=== PATIENT | male | born 1980 | race American Indian/Alaskan Native ===

== ENCOUNTER 2018-03-10 17:21 | Emergency (ER) | payer BC, SELFPAY ==
--- NOTE | 2018-03-10 17:30 | ED.ABDPAIN ---
HPI - Abdominal Pain <TORRIE Jim - Last Filed: 03/10/18 22:08> General Chief Complaint: Abdominal Pain Stated Complaint: Abdominal pain, Gall bladder removed Time Seen by Provider: 03/10/18 17:29 Source: patient Mode of arrival: ambulatory Limitations: no limitations History of Present Illness HPI narrative: 37-year-old male with history of hypertension and type 2 diabetes that is a nonsmoker here for complaint of right upper quadrant pain. He reports that he recently had a cholecystectomy via laparoscopy 3 days ago at [facility]. He reports that he was doing well until today when he started having increased pain to the area. He also has some nausea and vomiting. He denies any trauma to the area. No fevers no chills. He states his last bowel movement was earlier today and was loose. He was tolerating fluid up until today. He denies any stressors relievers of his pain. No other concerns or complaints. Related Data Previous Rx's Medication Instructions Recorded hydrocodone-acetaminophen [[place]] 1 tab PO Q4-6H PRN #15 tab 03/10/18 ondansetron 4 mg PO Q6-8H PRN #12 tab 03/10/18 Allergies Allergy/AdvReac Type Severity Reaction Status Date / Time No Known Drug Allergies Allergy Verified 03/10/18 17:38 Review of Systems <TORRIE Jim - Last Filed: 03/10/18 22:08> Constitutional Denies chills, Denies fever(s), Denies lethargy and Denies weakness Eyes Denies change in vision, Denies eye discharge, Denies irritation and Denies loss of vision ENT Ears, Nose, Mouth, and Throat: Denies change in voice, Denies neck pain and Denies sore throat Cardiovascular Denies chest pain, Denies irregular heart rhythm, Denies lightheadedness, Denies palpitations, Denies dyspnea, Denies dyspnea on exertion and Denies orthopnea Respiratory Denies cough, Denies dyspnea, Denies dyspnea on exertion and Denies wheezing Gastrointestinal Gastrointestinal: Reports abdominal pain and Reports vomiting Genitourinary Denies hematuria, Denies flank pain, Denies urinary incontinence and Denies urinary urgency Musculoskeletal Denies neck pain Integumentary/Breasts Denies pruritus, Denies erythema, Denies rash and Denies wounds Neurologic Denies confusion, Denies loss of vision and Denies weakness Psychiatric Denies anxiety, Denies confusion, Denies depression, Denies homicidal ideation and Denies suicidal ideation Endocrine Denies palpitations Hematologic/Lymphatic Denies easy bruising Allergic/Immunologic Denies wheezing Exam <TORRIE Jim - Last Filed: 03/10/18 22:08> Initial Vital Signs Initial Vital Signs: Vital Signs Temperature 98.1 F 03/10/18 17:34 Pulse Rate 122 H 03/10/18 17:34 Respiratory Rate 24 03/10/18 17:34 Blood Pressure 159/94 H 03/10/18 17:34 Pulse Oximetry 99 03/10/18 17:34 Const General: cooperative and well developed Nutritional Appearance: well nourished Orientation: alert, awake, oriented x3 and not confused HENMT Mouth: oral mucosae normal and moist mucous membranes Eyes Conjunctivae: conjunctivae normal Sclera: sclerae normal Pupils: PERRL EOM: EOM intact bilaterally Resp Effort & Inspection: normal respiratory effort, able to speak in complete sentences, no respiratory distress and no use of accessory muscles Auscultation: clear to auscultation bilaterally, no rales, no rhonchi and no wheezes Cardio Rate: regular rate Rhythm: regular rhythm Heart Sounds: no click, no gallops, no murmurs and no rubs GI Inspection: non-distended Palpation: soft, no hepatosplenomegaly, No guarding, No pulsatile mass and tender (Right upper quadrant tenderness) Auscultation: normal bowel sounds Skin General: no rashes or lesions noted, No jaundice and No petechiae Neuro General: alert, oriented x3, gait normal and no focal motor deficits Speech: speech normal <Jonh Cain DO - Last Filed: 03/11/18 05:52> Initial Vital Signs Initial Vital Signs: Vital Signs Temperature 98.1 F 03/10/18 17:34 Pulse Rate 122 H 03/10/18 17:34 Respiratory Rate 24 03/10/18 17:34 Blood Pressure 159/94 H 03/10/18 17:34 Pulse Oximetry 99 03/10/18 17:34 Course <TORRIE Jim - Last Filed: 03/10/18 22:08> Orders Ordered: Discontinued Medications Hydrocodone Bitart/Acetaminophen (Vicodin Prepack) 1 bottle MISC SEEINSTR ONE Stop: 11/24/18 21:37 Last Admin: 03/10/18 21:52 Dose: 1 bottle Hydromorphone HCl (Dilaudid) 1 mg IV NOW ONE Stop: 03/10/18 18:05 Last Admin: 03/10/18 18:16 Dose: 1 mg Hydromorphone HCl (Dilaudid) 1 mg IV NOW ONE Stop: 03/10/18 20:16 Last Admin: 03/10/18 20:22 Dose: 1 mg Hydromorphone HCl (Dilaudid) 0.5 mg IV NOW ONE Stop: 03/10/18 21:46 Last Admin: 03/10/18 21:52 Dose: 0.5 mg Sodium Chloride (Normal Saline 0.9%) 1,000 mls @ 1,000 mls/hr IV BOLUS ONE Stop: 03/10/18 18:39 Last Infusion: 03/10/18 19:43 Dose: 0 mls/hr Admin: 03/10/18 18:16 Dose: 1,000 mls/hr Sodium Chloride (Normal Saline 0.9%) 1,000 mls @ 1,000 mls/hr IV BOLUS ONE Stop: 03/10/18 19:03 Last Admin: 03/10/18 20:21 Dose: Not Given Ondansetron HCl (Zofran) 4 mg IV NOW ONE Stop: 03/10/18 18:05 Last Admin: 03/10/18 18:16 Dose: 4 mg Ondansetron HCl (Zofran Odt Prepack) 1 bottle [facility] ONE Stop: 03/10/18 21:37 Last Admin: 03/10/18 21:52 Dose: 1 bottle Vital Signs - 8 hr 03/10/18 17:34 03/10/18 18:55 03/10/18 20:27 Temperature 98.1 F Pulse Rate 122 H 93 H 94 H Respiratory Rate 24 18 16 Blood Pressure 159/94 H Blood Pressure [Left Arm] 153/94 H Blood Pressure [Right Arm] 144/88 H Pulse Oximetry 99 100 100 03/10/18 21:43 Temperature Pulse Rate 85 Respiratory Rate 16 Blood Pressure Blood Pressure [Left Arm] 139/79 Blood Pressure [Right Arm] 139/79 Pulse Oximetry 100 <Jonh Cain DO - Last Filed: 03/11/18 05:52> Orders Ordered: Discontinued Medications Hydrocodone Bitart/Acetaminophen (Vicodin Prepack) 1 bottle MISC SEEINSTR ONE Stop: 03/10/18 21:37 Last Admin: 03/10/18 21:52 Dose: 1 bottle Hydromorphone HCl (Dilaudid) 1 mg IV NOW ONE Stop: 03/10/18 18:05 Last Admin: 03/10/18 18:16 Dose: 1 mg Hydromorphone HCl (Dilaudid) 1 mg IV NOW ONE Stop: 03/10/18 20:16 Last Admin: 03/10/18 20:22 Dose: 1 mg Hydromorphone HCl (Dilaudid) 0.5 mg IV NOW ONE Stop: 03/10/18 21:46 Last Admin: 03/10/18 21:52 Dose: 0.5 mg Sodium Chloride (Normal Saline 0.9%) 1,000 mls @ 1,000 mls/hr IV BOLUS ONE Stop: 03/10/18 18:39 Last Infusion: 03/10/18 19:43 Dose: 0 mls/hr Admin: 03/10/18 18:16 Dose: 1,000 mls/hr Sodium Chloride (Normal Saline 0.9%) 1,000 mls @ 1,000 mls/hr IV BOLUS ONE Stop: 03/10/18 19:03 Last Admin: 03/10/18 20:21 Dose: Not Given Ondansetron HCl (Zofran) 4 mg IV NOW ONE Stop: 03/10/18 18:05 Last Admin: 03/10/18 18:16 Dose: 4 mg Ondansetron HCl (Zofran Odt Prepack) 1 bottle MISC SEEINSTR ONE Stop: 03/10/18 21:37 Last Admin: 03/10/18 21:52 Dose: 1 bottle Vital Signs - 8 hr 03/10/18 17:34 03/10/18 18:55 03/10/18 20:27 Temperature 98.1 F Pulse Rate 122 H 93 H 94 H Respiratory Rate 24 18 16 Blood Pressure 159/94 H Blood Pressure [Left Arm] 153/94 H Blood Pressure [Right Arm] 144/88 H Pulse Oximetry 99 100 100 03/10/18 21:43 Temperature Pulse Rate 85 Respiratory Rate 16 Blood Pressure Blood Pressure [Left Arm] 139/79 Blood Pressure [Right Arm] 139/79 Pulse Oximetry 100 MDM - Abdominal Pain <Nino QuintanaTORRIE - Last Filed: 03/10/18 22:08> Lab Data Result diagrams: 03/10/18 17:35 03/10/18 17:35 Lab Results 03/10/18 03/10/18 03/10/18 Range/Units 17:35 17:35 17:50 WBC 12.0 H (4.5-11.0) X10^3/uL RBC 5.70 (4.5-5.9) X10^6/uL Hgb 16.4 (13.5-17.5) g/dL Hct 48.1 (41-53) % MCV 84.3 (80-100) fL MCH 28.8 (26-34) PG MCHC 34.2 (30-36) % RDW 13.7 (11.6-14.8) % Plt Count 422 H (150-400) X10^3/uL Neut % (Auto) 75.8 H (50-75) % Lymph % (Auto) 15.3 L (25-40) % [place] % (Auto) 7.3 (3-14) % Eos % (Auto) 1.1 L (2-4) % Baso % (Auto) 0.5 (0-2) % Neut # (Auto) 9100 H (1619-7791) /uL Sodium 143 (137-145) mmol/L Potassium 4.3 (3.4-5.1) mmol/L Chloride 99 (98-107) mmol/L Carbon Dioxide 29 (22-32) mmol/L BUN 8 L (9-20) mg/dL Creatinine 0.70 (0.66-1.25) mg/dL Estimated GFR > 60.0 (>60) mL/min BUN/Creatinine Ratio 11.4 (6-22) Glucose 152 H (70-100) mg/dL Lactate 1.5 (0.7-2.1) mmol/L Calcium 9.7 (8.4-10.2) mg/dL Total Bilirubin 0.7 (0.2-1.3) mg/dL AST 56 (17-59) IU/L ALT 53 (21-72) IU/L Alkaline Phosphatase 110 (38-126) U/L Total Protein 8.6 H (6.3-8.2) g/dL Albumin 4.7 (3.5-5.0) g/dL Globulin 3.9 (1.7-4.1) g/dL Albumin/Globulin Ratio 1.2 (1.0-2.8) Lipase 682 H (23-300) U/L Point of care testing: Urine Dip Bedside Urine Glucose 100 mg/dl Bedside Urine Bilirubin - Negative Bedside Urine Ketone - Negative Urine Specific [place] 1.015 Bedside Urine Occult Blood - Negative Bedside Urine pH 6.5 Bedside Urine Protein - Negative Bedside Urine Urobilinogen +/- 1mg Bedside Urine Nitrite - Negative Bedside Urine Leukocytes - Negative Esterase Imaging Data CT scan - abdomen: Radiologist's impression: [address] [address] [address] Scan Report Signed Patient: Timbo Saldana [facility]#: [id number] : 1980Acct:[id number] Age/Sex: 37 / MDate of Service: 03/10/18 Loc: ED Accession Number: [id number] Procedure: CT abdomen pelvis w con Ordering Provider: Nino Quintana PROCEDURE: CT ABDOMEN PELVIS W CON INDICATIONS: Pain into right upper quadrant TECHNIQUE: After the administration of oral and intravenous contrast, 5 mm thick sections acquired from the diaphragms to the symphysis. 5 mm thick coronal and sagittal reformats were performed. For radiation dose reduction, the following was used: automated exposure control, adjustment of mA and/or kV according to patient size. COMPARISON: None. FINDINGS: Image quality: Excellent. ABDOMEN: Lung bases: Lung bases are clear. Heart size is normal. Solid organs: Liver is normal in size and enhancement. Gallbladder is surgically absent, and there is a small amount of ill-defined high density fat stranding within the gallbladder fossa, compatible with postsurgical sequelae. Biliary system is non-dilated. Pancreas enhances normally. Spleen is normal in size and enhancement. No adrenal nodules. Kidneys are normal in size and enhancement, without hydronephrosis. Peritoneum and bowel: Stomach, small bowel, and colon loops are normal in caliber and wall thickness. No free fluid or air. No change in mild dilatation of the appendiceal tip. Nodes and vessels: No retroperitoneal or mesenteric adenopathy. Aorta and inferior vena cava are normal in caliber. Miscellaneous: No ventral hernias. PELVIS: Genitourinary: Bladder wall thickness is normal. Miscellaneous: No inguinal hernias or adenopathy. Bones: No suspicious bony lesions. No vertebral body compression fractures. IMPRESSION: 1. Postsurgical sequelae. 2. No change in mild dilatation of the appendiceal tip, which could indicate mucocele or mucinous neoplasm. Surgical consultation recommended. Dictated by: Nancy Verde M.D. on 03/10/2018 at 19:24 Approved by: Nancy Verde M.D. on 03/10/2018 at 19:26 [facility] Narrative Medical decision making narrative: CBC shows elevated white count of 12k. CBC also shows elevated neutrophils at 9100, CMP was obtained and was unremarkable. Lipase was elevated at 682. CT of the abdomen shows postsurgical sequelae to the area of the gallbladder. CT of the abdomen also shows some dilation to the tip of the appendix unsure of the etiology of the distention. This is stable with prior CT. Discussed case with Dr. doherty surgery on-call at [facility] who states that they will follow up with the patient on Monday. He is prescribed [place] for discomfort. He is also prescribed ondansetron to help with the nausea vomiting. Slowly advance diet as tolerated. For any worsening symptoms return to the emergency room. <Jonh Cain, DO - Last Filed: 03/11/18 05:52> Lab Data Lab Results 03/10/18 03/10/18 03/10/18 Range/Units 17:35 17:35 17:50 WBC 12.0 H (4.5-11.0) X10^3/uL RBC 5.70 (4.5-5.9) X10^6/uL Hgb 16.4 (13.5-17.5) g/dL Hct 48.1 (41-53) % MCV 84.3 (80-100) fL MCH 28.8 (26-34) PG MCHC 34.2 (30-36) % RDW 13.7 (11.6-14.8) % Plt Count 422 H (150-400) X10^3/uL Neut % (Auto) 75.8 H (50-75) % Lymph % (Auto) 15.3 L (25-40) % [place] % (Auto) 7.3 (3-14) % Eos % (Auto) 1.1 L (2-4) % Baso % (Auto) 0.5 (0-2) % Neut # (Auto) 9100 H (0542-7685) /uL Sodium 143 (137-145) mmol/L Potassium 4.3 (3.4-5.1) mmol/L Chloride 99 (98-107) mmol/L Carbon Dioxide 29 (22-32) mmol/L BUN 8 L (9-20) mg/dL Creatinine 0.70 (0.66-1.25) mg/dL Estimated GFR > 60.0 (>60) mL/min BUN/Creatinine Ratio 11.4 (6-22) Glucose 152 H (70-100) mg/dL Lactate 1.5 (0.7-2.1) mmol/L Calcium 9.7 (8.4-10.2) mg/dL Total Bilirubin 0.7 (0.2-1.3) mg/dL AST 56 (17-59) IU/L ALT 53 (21-72) IU/L Alkaline Phosphatase 110 (38-126) U/L Total Protein 8.6 H (6.3-8.2) g/dL Albumin 4.7 (3.5-5.0) g/dL Globulin 3.9 (1.7-4.1) g/dL Albumin/Globulin Ratio 1.2 (1.0-2.8) Lipase 682 H (23-300) U/L Point of care testing: Urine Dip Bedside Urine Glucose 100 mg/dl Bedside Urine Bilirubin - Negative Bedside Urine Ketone - Negative Urine Specific [place] 1.015 Bedside Urine Occult Blood - Negative Bedside Urine pH 6.5 Bedside Urine Protein - Negative Bedside Urine Urobilinogen +/- 1mg Bedside Urine Nitrite - Negative Bedside Urine Leukocytes - Negative Esterase Discharge Plan Departure Patient Disposition: Home Clinical Impression: Abdominal pain Discharge Date/Time: 03/10/18 22:07 Interventions: ED Discharge Assessment Last Done: 03/10/18 22:07 Instructions: DI for Abdominal Pain-Adult Activity Restrictions/Additional Instructions: Laboratory results today shows slightly elevated white count this may be due to postsurgical changes. Laboratory results also show elevated lipase however CT does not show any complications with your pancreas. Discussed case with surgery at [facility] will follow up with you on Monday. Call the office Monday morning to schedule follow-up appointment. You are prescribed [place] for pain use as directed. Also prescribed Zofran to help with any nausea also use as directed. For any worsening symptoms return to the emergency room. Prescriptions: New hydrocodone-acetaminophen [[place]] 5-325 mg tablet 1 tab PO Q4-6H PRN (Reason: pain) Qty: 15 RF: 0 ondansetron 4 mg tablet,disintegrating 4 mg PO Q6-8H PRN (Reason: nausea and vomiting) Qty: 12 RF: 0 Referrals: [facility] [Provider Group] <Jonh Cain DO - Last Filed: 03/11/18 05:52> [facility] ED Attending Samantha Attestation: I was immediately available in the department for consultation. Documentation has been reviewed. I agree with assessment and plan.
[2018-03-10 17:34] VITALS: BP 159/94; PULSE 122; RESP 24; TEMP 36.7; O2SAT 99; BMI 34.0
[2018-03-10 17:49] LABS: Add Manual Diff / Slide Review NO; Basophils Percent Auto 0.5 % (0-2); Eosinophils Percent Auto 1.1 % (2-4); Hematocrit 48.1 % (41-53); Hemoglobin 16.4 g/dL (13.5-17.5); Lymphocytes Percent Auto 15.3 % (25-40); Mean Corpuscular HGB Conc 34.2 % (30-36); Mean Corpuscular Hemoglobin 28.8 PG (26-34); Mean Corpuscular Volume 84.3 fL (80-100); Monocytes Percent Auto 7.3 % (3-14); Neutrophils Absolute Auto 9100 /uL (3000-5900); Neutrophils Percent Auto 75.8 % (50-75); Platelet Count 422 X10^3/uL (150-400); Red Cell Distribution Width 13.7 % (11.6-14.8)
[2018-03-10 17:55] LABS: Alanine Aminotransferase 53 IU/L (21-72); Albumin 4.7 g/dL (3.5-5.0); Albumin Globulin Ratio 1.2 (1.0-2.8); Alkaline Phosphatase 110 U/L (38-126); Aspartate Aminotransferase 56 IU/L (17-59); BUN Creatinine Ratio 11.4 (6-22); Bilirubin Total 0.7 mg/dL (0.2-1.3); Blood Urea Nitrogen 8 mg/dL (9-20); Calcium 9.7 mg/dL (8.4-10.2); Carbon Dioxide 29 mmol/L (22-32); Chloride 99 mmol/L (98-107); Estimated Glomerular Filt Rate > 60.0 mL/min (>60); Globulin 3.9 g/dL (1.7-4.1); Glucose 152 mg/dL (70-100); HEMOLYSIS 35 (0-50); Lipase 682 U/L (23-300); Potassium 4.3 mmol/L (3.4-5.1); Sodium 143 mmol/L (137-145); Total Protein 8.6 g/dL (6.3-8.2)
--- NOTE | 2018-03-10 18:04 | DI.CT.S_ITS ---
PROCEDURE: CT ABDOMEN PELVIS W CON INDICATIONS: Pain into right upper quadrant TECHNIQUE: After the administration of oral and intravenous contrast, 5 mm thick sections acquired from the diaphragms to the symphysis. 5 mm thick coronal and sagittal reformats were performed. For radiation dose reduction, the following was used: automated exposure control, adjustment of mA and/or kV according to patient size. COMPARISON: None. FINDINGS: Image quality: Excellent. ABDOMEN: Lung bases: Lung bases are clear. Heart size is normal. Solid organs: Liver is normal in size and enhancement. Gallbladder is surgically absent, and there is a small amount of ill-defined high density fat stranding within the gallbladder fossa, compatible with postsurgical sequelae. Biliary system is non-dilated. Pancreas enhances normally. Spleen is normal in size and enhancement. No adrenal nodules. Kidneys are normal in size and enhancement, without hydronephrosis. Peritoneum and bowel: Stomach, small bowel, and colon loops are normal in caliber and wall thickness. No free fluid or air. No change in mild dilatation of the appendiceal tip. Nodes and vessels: No retroperitoneal or mesenteric adenopathy. Aorta and inferior vena cava are normal in caliber. Miscellaneous: No ventral hernias. PELVIS: Genitourinary: Bladder wall thickness is normal. Miscellaneous: No inguinal hernias or adenopathy. Bones: No suspicious bony lesions. No vertebral body compression fractures. IMPRESSION: 1. Postsurgical sequelae. 2. No change in mild dilatation of the appendiceal tip, which could indicate mucocele or mucinous neoplasm. Surgical consultation recommended. Dictated by: Nancy Verde M.D. on 03/10/2018 at 19:24 Approved by: Nancy Verde M.D. on 03/10/2018 at 19:26
[2018-03-10] MEDS: ONDANSETRON 4 MG/2 ML INJ IV (18:16)
[2018-03-10] MEDS: SODIUM CHLORIDE 0.9% 1,000 ML 1000 ML IV (18:16)
[2018-03-10] MEDS: HYDROMORPHONE 1 MG INJ IV ×2 (18:16→20:22)
[2018-03-10 18:17] LABS: Lactate (Lactic Acid) 1.5 mmol/L (0.7-2.1)
[2018-03-10 18:55] VITALS: BP 153/94; PULSE 93; RESP 18; O2SAT 100
[2018-03-10 20:27] VITALS: BP 144/88; PULSE 94; RESP 16; O2SAT 100
--- NOTE | 2018-03-10 20:47 | ED_ITS ---
HPI - Abdominal Pain <TORRIE Jim - Last Filed: 03/10/18 22:08> General Chief Complaint: Abdominal Pain Stated Complaint: Abdominal pain, Gall bladder removed Time Seen by Provider: 03/10/18 17:29 Source: patient Mode of arrival: ambulatory Limitations: no limitations History of Present Illness HPI narrative: 37-year-old male with history of hypertension and type 2 diabetes that is a nonsmoker here for complaint of right upper quadrant pain. He reports that he recently had a cholecystectomy via laparoscopy 3 days ago at [facility]. He reports that he was doing well until today when he started having increased pain to the area. He also has some nausea and vomiting. He denies any trauma to the area. No fevers no chills. He states his last bowel movement was earlier today and was loose. He was tolerating fluid up until today. He denies any stressors relievers of his pain. No other concerns or complaints. Related Data Previous Rx's Medication Instructions Recorded hydrocodone-acetaminophen [Clyde] 1 tab PO Q4-6H PRN #15 tab 03/10/18 ondansetron 4 mg PO Q6-8H PRN #12 tab 03/10/18 Allergies Allergy/AdvReac Type Severity Reaction Status Date / Time No Known Drug Allergies Allergy Verified 03/10/18 17:38 Review of Systems <TORRIE Jim - Last Filed: 03/10/18 22:08> Constitutional Denies chills, Denies fever(s), Denies lethargy and Denies weakness Eyes Denies change in vision, Denies eye discharge, Denies irritation and Denies loss of vision ENT Ears, Nose, Mouth, and Throat: Denies change in voice, Denies neck pain and Denies sore throat Cardiovascular Denies chest pain, Denies irregular heart rhythm, Denies lightheadedness, Denies palpitations, Denies dyspnea, Denies dyspnea on exertion and Denies orthopnea Respiratory Denies cough, Denies dyspnea, Denies dyspnea on exertion and Denies wheezing Gastrointestinal Gastrointestinal: Reports abdominal pain and Reports vomiting Genitourinary Denies hematuria, Denies flank pain, Denies urinary incontinence and Denies urinary urgency Musculoskeletal Denies neck pain Integumentary/Breasts Denies pruritus, Denies erythema, Denies rash and Denies wounds Neurologic Denies confusion, Denies loss of vision and Denies weakness Psychiatric Denies anxiety, Denies confusion, Denies depression, Denies homicidal ideation and Denies suicidal ideation Endocrine Denies palpitations Hematologic/Lymphatic Denies easy bruising Allergic/Immunologic Denies wheezing Exam <TORRIE Jim - Last Filed: 03/10/18 22:08> Initial Vital Signs Initial Vital Signs: Vital Signs Temperature 98.1 F 03/10/18 17:34 Pulse Rate 122 H 03/10/18 17:34 Respiratory Rate 24 03/10/18 17:34 Blood Pressure 159/94 H 03/10/18 17:34 Pulse Oximetry 99 03/10/18 17:34 Const General: cooperative and well developed Nutritional Appearance: well nourished Orientation: alert, awake, oriented x3 and not confused HENMT Mouth: oral mucosae normal and moist mucous membranes Eyes Conjunctivae: conjunctivae normal Sclera: sclerae normal Pupils: PERRL EOM: EOM intact bilaterally Resp Effort & Inspection: normal respiratory effort, able to speak in complete sentences, no respiratory distress and no use of accessory muscles Auscultation: clear to auscultation bilaterally, no rales, no rhonchi and no wheezes Cardio Rate: regular rate Rhythm: regular rhythm Heart Sounds: no click, no gallops, no murmurs and no rubs GI Inspection: non-distended Palpation: soft, no hepatosplenomegaly, No guarding, No pulsatile mass and tender (Right upper quadrant tenderness) Auscultation: normal bowel sounds Skin General: no rashes or lesions noted, No jaundice and No petechiae Neuro General: alert, oriented x3, gait normal and no focal motor deficits Speech: speech normal <Jonh Cain DO - Last Filed: 03/11/18 05:52> Initial Vital Signs Initial Vital Signs: Vital Signs Temperature 98.1 F 03/10/18 17:34 Pulse Rate 122 H 03/10/18 17:34 Respiratory Rate 24 03/10/18 17:34 Blood Pressure 159/94 H 03/10/18 17:34 Pulse Oximetry 99 03/10/18 17:34 Course <TORRIE Jim - Last Filed: 03/10/18 22:08> Orders Ordered: Discontinued Medications Hydrocodone Bitart/Acetaminophen (Vicodin Prepack) 1 bottle MISC SEEINSTR ONE Stop: 11/24/18 21:37 Last Admin: 03/10/18 21:52 Dose: 1 bottle Hydromorphone HCl (Dilaudid) 1 mg IV NOW ONE Stop: 03/10/18 18:05 Last Admin: 03/10/18 18:16 Dose: 1 mg Hydromorphone HCl (Dilaudid) 1 mg IV NOW ONE Stop: 03/10/18 20:16 Last Admin: 03/10/18 20:22 Dose: 1 mg Hydromorphone HCl (Dilaudid) 0.5 mg IV NOW ONE Stop: 03/10/18 21:46 Last Admin: 03/10/18 21:52 Dose: 0.5 mg Sodium Chloride (Normal Saline 0.9%) 1,000 mls @ 1,000 mls/hr IV BOLUS ONE Stop: 03/10/18 18:39 Last Infusion: 03/10/18 19:43 Dose: 0 mls/hr Admin: 03/10/18 18:16 Dose: 1,000 mls/hr Sodium Chloride (Normal Saline 0.9%) 1,000 mls @ 1,000 mls/hr IV BOLUS ONE Stop: 03/10/18 19:03 Last Admin: 03/10/18 20:21 Dose: Not Given Ondansetron HCl (Zofran) 4 mg IV NOW ONE Stop: 03/10/18 18:05 Last Admin: 03/10/18 18:16 Dose: 4 mg Ondansetron HCl (Zofran Odt Prepack) 1 bottle [facility] SEEINSTR ONE Stop: 03/10/18 21:37 Last Admin: 03/10/18 21:52 Dose: 1 bottle Vital Signs - 8 hr 03/10/18 17:34 03/10/18 18:55 03/10/18 20:27 Temperature 98.1 F Pulse Rate 122 H 93 H 94 H Respiratory Rate 24 18 16 Blood Pressure 159/94 H Blood Pressure [Left Arm] 153/94 H Blood Pressure [Right Arm] 144/88 H Pulse Oximetry 99 100 100 03/10/18 21:43 Temperature Pulse Rate 85 Respiratory Rate 16 Blood Pressure Blood Pressure [Left Arm] 139/79 Blood Pressure [Right Arm] 139/79 Pulse Oximetry 100 <Jonh Cain DO - Last Filed: 03/11/18 05:52> Orders Ordered: Discontinued Medications Hydrocodone Bitart/Acetaminophen (Vicodin Prepack) 1 bottle MISC SEEINSTR ONE Stop: 03/10/18 21:37 Last Admin: 03/10/18 21:52 Dose: 1 bottle Hydromorphone HCl (Dilaudid) 1 mg IV NOW ONE Stop: 03/10/18 18:05 Last Admin: 03/10/18 18:16 Dose: 1 mg Hydromorphone HCl (Dilaudid) 1 mg IV NOW ONE Stop: 03/10/18 20:16 Last Admin: 03/10/18 20:22 Dose: 1 mg Hydromorphone HCl (Dilaudid) 0.5 mg IV NOW ONE Stop: 03/10/18 21:46 Last Admin: 03/10/18 21:52 Dose: 0.5 mg Sodium Chloride (Normal Saline 0.9%) 1,000 mls @ 1,000 mls/hr IV BOLUS ONE Stop: 03/10/18 18:39 Last Infusion: 03/10/18 19:43 Dose: 0 mls/hr Admin: 03/10/18 18:16 Dose: 1,000 mls/hr Sodium Chloride (Normal Saline 0.9%) 1,000 mls @ 1,000 mls/hr IV BOLUS ONE Stop: 03/10/18 19:03 Last Admin: 03/10/18 20:21 Dose: Not Given Ondansetron HCl (Zofran) 4 mg IV NOW ONE Stop: 03/10/18 18:05 Last Admin: 03/10/18 18:16 Dose: 4 mg Ondansetron HCl (Zofran Odt Prepack) 1 bottle MISC SEEINSTR ONE Stop: 03/10/18 21:37 Last Admin: 03/10/18 21:52 Dose: 1 bottle Vital Signs - 8 hr 03/10/18 17:34 03/10/18 18:55 03/10/18 20:27 Temperature 98.1 F Pulse Rate 122 H 93 H 94 H Respiratory Rate 24 18 16 Blood Pressure 159/94 H Blood Pressure [Left Arm] 153/94 H Blood Pressure [Right Arm] 144/88 H Pulse Oximetry 99 100 100 03/10/18 21:43 Temperature Pulse Rate 85 Respiratory Rate 16 Blood Pressure Blood Pressure [Left Arm] 139/79 Blood Pressure [Right Arm] 139/79 Pulse Oximetry 100 MDM - Abdominal Pain <Nino QuintanaTORRIE - Last Filed: 03/10/18 22:08> Lab Data Result diagrams: 03/10/18 17:35 03/10/18 17:35 Lab Results 03/10/18 03/10/18 03/10/18 Range/Units 17:35 17:35 17:50 WBC 12.0 H (4.5-11.0) X10^3/uL RBC 5.70 (4.5-5.9) X10^6/uL Hgb 16.4 (13.5-17.5) g/dL Hct 48.1 (41-53) % MCV 84.3 (80-100) fL MCH 28.8 (26-34) PG MCHC 34.2 (30-36) % RDW 13.7 (11.6-14.8) % Plt Count 422 H (150-400) X10^3/uL Neut % (Auto) 75.8 H (50-75) % Lymph % (Auto) 15.3 L (25-40) % [place] % (Auto) 7.3 (3-14) % Eos % (Auto) 1.1 L (2-4) % Baso % (Auto) 0.5 (0-2) % Neut # (Auto) 9100 H (9389-7746) /uL Sodium 143 (137-145) mmol/L Potassium 4.3 (3.4-5.1) mmol/L Chloride 99 (98-107) mmol/L Carbon Dioxide 29 (22-32) mmol/L BUN 8 L (9-20) mg/dL Creatinine 0.70 (0.66-1.25) mg/dL Estimated GFR > 60.0 (>60) mL/min BUN/Creatinine Ratio 11.4 (6-22) Glucose 152 H (70-100) mg/dL Lactate 1.5 (0.7-2.1) mmol/L Calcium 9.7 (8.4-10.2) mg/dL Total Bilirubin 0.7 (0.2-1.3) mg/dL AST 56 (17-59) IU/L ALT 53 (21-72) IU/L Alkaline Phosphatase 110 (38-126) U/L Total Protein 8.6 H (6.3-8.2) g/dL Albumin 4.7 (3.5-5.0) g/dL Globulin 3.9 (1.7-4.1) g/dL Albumin/Globulin Ratio 1.2 (1.0-2.8) Lipase 682 H (23-300) U/L Point of care testing: Urine Dip Bedside Urine Glucose 100 mg/dl Bedside Urine Bilirubin - Negative Bedside Urine Ketone - Negative Urine Specific [place] 1.015 Bedside Urine Occult Blood - Negative Bedside Urine pH 6.5 Bedside Urine Protein - Negative Bedside Urine Urobilinogen +/- 1mg Bedside Urine Nitrite - Negative Bedside Urine Leukocytes - Negative Esterase Imaging Data CT scan - abdomen: Radiologist's impression: [address] [address] [address] Scan Report Signed Patient: Timbo Saldana [facility]#: [id number] : 1980Acct:[id number] Age/Sex: 37 / MDate of Service: 03/10/18 Loc: ED Accession Number: [id number] Procedure: CT abdomen pelvis w con Ordering Provider: Nino Quintana PROCEDURE: CT ABDOMEN PELVIS W CON INDICATIONS: Pain into right upper quadrant TECHNIQUE: After the administration of oral and intravenous contrast, 5 mm thick sections acquired from the diaphragms to the symphysis. 5 mm thick coronal and sagittal reformats were performed. For radiation dose reduction, the following was used: automated exposure control, adjustment of mA and/or kV according to patient size. COMPARISON: None. FINDINGS: Image quality: Excellent. ABDOMEN: Lung bases: Lung bases are clear. Heart size is normal. Solid organs: Liver is normal in size and enhancement. Gallbladder is surgically absent, and there is a small amount of ill-defined high density fat stranding within the gallbladder fossa, compatible with postsurgical sequelae. Biliary system is non -dilated. Pancreas enhances normally. Spleen is normal in size and enhancement. No adrenal nodules. Kidneys are normal in size and enhancement, without hydronephrosis. Peritoneum and bowel: Stomach, small bowel, and colon loops are normal in caliber and wall thickness. No free fluid or air. No change in mild dilatation of the appendiceal tip. Nodes and vessels: No retroperitoneal or mesenteric adenopathy. Aorta and inferior vena cava are normal in caliber. Miscellaneous: No ventral hernias. PELVIS: Genitourinary: Bladder wall thickness is normal. Miscellaneous: No inguinal hernias or adenopathy. Bones: No suspicious bony lesions. No vertebral body compression fractures. IMPRESSION: 1. Postsurgical sequelae. 2. No change in mild dilatation of the appendiceal tip, which could indicate mucocele or mucinous neoplasm. Surgical consultation recommended. Dictated by: Nancy Verde M.D. on 03/10/2018 at 19:24 Approved by: Nancy Verde M.D. on 03/10/2018 at 19:26 [facility] Narrative Medical decision making narrative: CBC shows elevated white count of 12k. CBC also shows elevated neutrophils at 9100, CMP was obtained and was unremarkable. Lipase was elevated at 682. CT of the abdomen shows postsurgical sequelae to the area of the gallbladder. CT of the abdomen also shows some dilation to the tip of the appendix unsure of the etiology of the distention. This is stable with prior CT. Discussed case with Dr. doherty surgery on-call at [facility] who states that they will follow up with the patient on Monday. He is prescribed Clyde for discomfort. He is also prescribed ondansetron to help with the nausea vomiting. Slowly advance diet as tolerated. For any worsening symptoms return to the emergency room. <Jonh Cain, DO - Last Filed: 03/11/18 05:52> Lab Data Lab Results 03/10/18 03/10/18 03/10/18 Range/Units 17:35 17:35 17:50 WBC 12.0 H (4.5-11.0) X10^3/uL RBC 5.70 (4.5-5.9) X10^6/uL Hgb 16.4 (13.5-17.5) g/dL Hct 48.1 (41-53) % MCV 84.3 (80-100) fL MCH 28.8 (26-34) PG MCHC 34.2 (30-36) % RDW 13.7 (11.6-14.8) % Plt Count 422 H (150-400) X10^3/uL Neut % (Auto) 75.8 H (50-75) % Lymph % (Auto) 15.3 L (25-40) % [place] % (Auto) 7.3 (3-14) % Eos % (Auto) 1.1 L (2-4) % Baso % (Auto) 0.5 (0-2) % Neut # (Auto) 9100 H (7858-0179) /uL Sodium 143 (137-145) mmol/L Potassium 4.3 (3.4-5.1) mmol/L Chloride 99 (98-107) mmol/L Carbon Dioxide 29 (22-32) mmol/L BUN 8 L (9-20) mg/dL Creatinine 0.70 (0.66-1.25) mg/dL Estimated GFR > 60.0 (>60) mL/min BUN/Creatinine Ratio 11.4 (6-22) Glucose 152 H (70-100) mg/dL Lactate 1.5 (0.7-2.1) mmol/L Calcium 9.7 (8.4-10.2) mg/dL Total Bilirubin 0.7 (0.2-1.3) mg/dL AST 56 (17-59) IU/L ALT 53 (21-72) IU/L Alkaline Phosphatase 110 (38-126) U/L Total Protein 8.6 H (6.3-8.2) g/dL Albumin 4.7 (3.5-5.0) g/dL Globulin 3.9 (1.7-4.1) g/dL Albumin/Globulin Ratio 1.2 (1.0-2.8) Lipase 682 H (23-300) U/L Point of care testing: Urine Dip Bedside Urine Glucose 100 mg/dl Bedside Urine Bilirubin - Negative Bedside Urine Ketone - Negative Urine Specific [place] 1.015 Bedside Urine Occult Blood - Negative Bedside Urine pH 6.5 Bedside Urine Protein - Negative Bedside Urine Urobilinogen +/- 1mg Bedside Urine Nitrite - Negative Bedside Urine Leukocytes - Negative Esterase Discharge Plan Departure Patient Disposition: Home Clinical Impression: Abdominal pain Discharge Date/Time: 03/10/18 22:07 Interventions: ED Discharge Assessment Last Done: 03/10/18 22:07 Instructions: DI for Abdominal Pain-Adult Activity Restrictions/Additional Instructions: Laboratory results today shows slightly elevated white count this may be due to postsurgical changes. Laboratory results also show elevated lipase however CT does not show any complications with your pancreas. Discussed case with surgery at [facility] will follow up with you on Monday. Call the office Monday morning to schedule follow-up appointment. You are prescribed Clyde for pain use as directed. Also prescribed Zofran to help with any nausea also use as directed. For any worsening symptoms return to the emergency room. Prescriptions: New hydrocodone-acetaminophen [Clyde] 5-325 mg tablet 1 tab PO Q4-6H PRN (Reason: pain) Qty: 15 RF: 0 ondansetron 4 mg tablet,disintegrating 4 mg PO Q6-8H PRN (Reason: nausea and vomiting) Qty: 12 RF: 0 Referrals: [facility] [Provider Group] <Jonh Cain DO - Last Filed: 03/11/18 05:52> [facility] ED Attending Samantha Attestation: I was immediately available in the department for consultation. Documentation has been reviewed. I agree with assessment and plan.
[2018-03-10 21:43] VITALS: BP 139/79; PULSE 85; PULSE 94; RESP 16; O2SAT 100; O2SAT 98
[2018-03-10] MEDS: ONDANSETRON 4 MG ODT PREPACK 1 BOTTLE MISC (21:52)
[2018-03-10] MEDS: HYDROMORPHONE 1 MG INJ 0.5 MG IV (21:52)
[2018-03-10] MEDS: HYDROCODONE/ACET 5/325 PREPACK 1 BOTTLE MISC (21:52)
== END 2018-03-10 22:07 | disposition home or self-care (01) ==
PROVIDERS: Emergency Medicine; Emergency Provider Nurse Practitioner Family
DX: R10.9 Unspecified abdominal pain (principal); Z98.890 Other specified postprocedural states
CPT/HCPCS: 36591; 74177; 80053; 81003; 83605; 83690; 85025; 96361; 96374; 96375; 96376; 99283; 99285; J1170; J2405; Q9967